=== PATIENT | male | born 1955 | race Caucasian/White ===

== ENCOUNTER → 2017-05-25 | Outpatient (REF) | LOC: ZLAB.WCH 18:08 | DX: Z01.89 Encounter for other specified special examinations (principal) | CPT/HCPCS: G0103 ==

== ENCOUNTER → 2017-06-16 | Outpatient (REF) | LOC: ZLAB.WCH 18:01 | DX: Z01.89 Encounter for other specified special examinations (principal) ==

== ENCOUNTER → 2023-10-11 | Outpatient (CLI) | payer MEDICARE ==
[~2023-10-11] VITALS: Ht 177.8 cm; Wt 74.6 kg
[2023-10-11] VITALS (10 sets, daily range): BP systolic 115–143; BP diastolic 72–88; PULSE 59–70; TEMP 97.7
[~2023-10-11] MED LIST: PEPCID40 MG PO; PHARMASSURE MA500 MG PO; SMZ/TMPDS PO; VALTREX1 GM PO; VITAMIN D 50,1.25 MG PO; [UNRECOGNIZED DRUG - OTHER] PO
--- NOTE | 2023-10-11 14:00 | NUR ---
Pt to ct per wheelchair. Pt up and onto ct table in supine position. Monitors applied.
--- NOTE | 2023-10-11 14:15 | NUR ---
Specimens obtained by Dr Pate and placed in formalin. Specimen labeled.
--- NOTE | 2023-10-11 15:19 | NUR ---
Chest xray completed.
--- NOTE | 2023-10-11 15:36 | NUR ---
Pt given muffin and water to eat. After confirming no pnuemo on chest xray report. Int removed. tip intact. 2x2 and coban to site.
--- NOTE | 2023-10-11 15:45 | NUR ---
Pt out to car per wheelchair. Pt up and into car without difficulty. Pt denies any questions regarding discharge instructions. Copy with pt.
== END ==
LOC: COL.RAD 13:00
DX: D16.7 Benign neoplasm of ribs, sternum and clavicle (principal)
CPT/HCPCS: 32106; 32108